=== PATIENT | female | born 1990 | race Caucasian/White ===

== ENCOUNTER 2020-10-22 16:11 | Emergency (ER) | payer MEDICAID ==
[~2020-10-22] VITALS: Ht 157.5 cm; Wt 54.4 kg
[2020-10-22 16:11] VITALS: BP 154/85
--- NOTE | 2020-10-22 16:13 | NUR ---
PT SENT TO ER LOBBY TO WAIT FOR MSE/ AVAILABLE BED.
[2020-10-22] MEDS ORDERED: HYDR25CA1 PO (17:02)
--- NOTE | 2020-10-22 17:08 | NUR ---
Patient discharged with v/s stable. Written and verbal after care instructions given and explained. Patient alert, oriented and verbalized understanding of instructions. Ambulatory with steady gait. All questions addressed prior to discharge. ID band removed. Patient advised to follow up with PMD. Rx of HYDROXYZINE given. Patient educated on indication of medication including possible reaction and side effects. Opportunity to ask questions provided and answered.
== END 2020-10-22 17:08 | disposition home or self-care (01) ==
LOC: MED 16:11
DX: F41.9 Anxiety disorder, unspecified (principal)
CPT/HCPCS: 99283